=== PATIENT | female | born 1960 | race Caucasian/White ===

== ENCOUNTER 2020-01-21 19:27 | Emergency (ER) | payer MEDICAID ==
[~2020-01-21] VITALS: Ht 149.9 cm; Wt 100.7 kg
[2020-01-21 19:35] VITALS: BP 137/87
[2020-01-21 20:34] LABS: BASOPHILS # (AUTO) 0.07 x10^3/uL (0-0.1); BASOPHILS % (AUTO) 1 % (0-1); EOSINOPHILS # (AUTO) 0.23 x10^3/uL (0-0.4); EOSINOPHILS % (AUTO) 2 % (1-7); LYMPHOCYTES # (AUTO) 3.48 x10^3/uL (1-3.4); LYMPHOCYTES % (AUTO) 32 % (22-44); MD NO; MEAN CORPUSCULAR HGB CONC 32.8 g/dL (32.4-35.8); MEAN PLATELET VOLUME 8.8 fL (7.4-10.4); MONOCYTES # (AUTO) 0.74 x10^3/uL (0.2-0.8); MONOCYTES % (AUTO) 7 % (2-9); NEUTROPHILS # (AUTO) 6.44 x10^3/uL (1.8-6.8); NEUTROPHILS % (AUTO) 59 % (42-75); PLATELET COUNT 325 x10^3/uL (130-400); RED BLOOD COUNT 5.36 x10^6/uL (3.82-5.3); RED CELL DISTRIBUTION WIDTH 13.8 % (9.6-15.2)
[2020-01-21 20:43] LABS: ALBUMIN 3.4 g/dL (3.4-5.0); ANION GAP 5 mmol/L (5-15); CALCIUM 9.4 mg/dL (8.5-10.1); CHLORIDE 101 mmol/L (98-107)
[2020-01-21 20:46] LABS: ALANINE AMINOTRANSFERASE 29 U/L (12-78); ALKALINE PHOSPHATASE 71 U/L (45-117); BILIRUBIN,TOTAL 0.4 mg/dL (0.2-1.0); CREATININE 0.76 mg/dL (0.55-1.02); TOTAL PROTEIN 7.3 g/dL (6.4-8.2)
--- NOTE | 2020-01-21 21:10 | NUR ---
PT RESTING COMFORTABLY IN [facility] WITH VS MONITORS ATTACHED. VSS AT THIS TIME; CHIRAG. PT HAS CALL LIGHT WITHIN REACH AND AWAITING ORDERS AT THIS TIME.
[2020-01-21] MEDS ORDERED: DEXAMETHASONE 4 MG TABLET ONE (21:26)
[2020-01-21] MEDS ORDERED: ALBUTEROL/IPRATROPIUM 2.5MG/0.5MG, 3 ML ONE (21:27)
[2020-01-21] MEDS ORDERED: ALBUTEROL/IPRATROPIUM 2.5MG/0.5MG, 3 ML NPPB ONE (21:30)
[2020-01-21] MEDS ORDERED: DEXAMETHASONE 4 MG TABLET PO ONE (21:30)
--- NOTE | 2020-01-21 21:54 | NUR ---
PT RESTING IN [facility] AT THIS TIME; BREATHING TREATMENT ADMINISTERED AND COMPLETE PER MAR. PT DENIES ANY NEEDS AT THIS TIME AND HAS CALL LIGHT WITHIN REACH.
--- NOTE | 2020-01-21 22:50 | NUR ---
PT D/C WITH D/C SUMMARY AND SCRIPTS. ALL QUESTIONS ANSWERED. PT AMBULATES TO REGISTRATION DESK WITH STEADY GAIT FOR D/C HOME AND DENIES ANY OTHER NEEDS PERTAINING TO THIS VISIT.
== END 2020-01-21 22:52 | disposition home or self-care (01) ==
LOC: ED 21:59
DX: J44.1 Chronic obstructive pulmonary disease with (acute) exacerbation (principal); R06.00 Dyspnea, unspecified; Z20.828 Contact with and (suspected) exposure to other viral communicable diseases; R00.0 Tachycardia, unspecified; F17.210 Nicotine dependence, cigarettes, uncomplicated; I10 Essential (primary) hypertension
CPT/HCPCS: 36415; 71045; 80053; 85025; 87635; 93005; 94640; 99285; 99406

== ENCOUNTER 2020-04-14 13:29 | Emergency (ER) | payer MEDICAID ==
[~2020-04-14] VITALS: Ht 149.9 cm; Wt 102.6 kg
[2020-04-14 13:38] VITALS: BP 153/85
--- NOTE | 2020-04-14 15:49 | NUR ---
XRAYS AND CT COMPLETED WITH DR CABALLERO AT BEDSIDE EXAMINING PT
--- NOTE | 2020-04-14 15:54 | NUR ---
HEAD PAIN BEHIND LEFT EYE, LEFT HIP, BILATERAL KNEE PAIN, NECK PAIN S/P MECHANICAL GLF 3 DAYS AGO.
--- NOTE | 2020-04-14 16:38 | NUR ---
AMBULATED TO BATHROOM ACROSS [place]ART[place]. REMAINS IN [facility].
== END 2020-04-14 17:56 ==
LOC: ED 15:57
DX: S80.02XA Contusion of left knee, initial encounter (principal); S09.90XA Unspecified injury of head, initial encounter; M54.2 Cervicalgia; I10 Essential (primary) hypertension; J44.9 Chronic obstructive pulmonary disease, unspecified; F17.200 Nicotine dependence, unspecified, uncomplicated; W01.0XXA Fall on same level from slipping, tripping and stumbling without subsequent striking against object, initial encounter; Y93.89 Activity, other specified; Y92.009 Unspecified place in unspecified non-institutional (private) residence as the place of occurrence of the external cause; Y99.8 Other external cause status
CPT/HCPCS: 70450; 70486; 72125; 99285

== ENCOUNTER 2020-09-08 19:30 | Emergency (ER) | payer MEDICAID ==
[~2020-09-08] VITALS: Ht 149.9 cm; Wt 102.6 kg
[2020-09-08 20:30] LABS: BASOPHILS % (AUTO) 1 % (0-1); EOSINOPHILS % (AUTO) 2 % (1-7); LYMPHOCYTES % (AUTO) 30 % (22-44); MEAN CORPUSCULAR HEMOGLOBIN 30.6 pg (27.0-34.8); MEAN CORPUSCULAR HGB CONC 34.2 g/dL (32.4-35.8); MEAN PLATELET VOLUME 8.5 fL (7.4-10.4); MONOCYTES % (AUTO) 5 % (2-9); NEUTROPHILS % (AUTO) 62 % (42-75); PLATELET COUNT 308 x10^3/uL (130-400); RED BLOOD COUNT 5.13 x10^6/uL (3.82-5.3); RED CELL DISTRIBUTION WIDTH 13.8 % (9.6-15.2)
[2020-09-08 20:31] LABS: MD NO
[2020-09-08 20:41] LABS: ALBUMIN 3.6 g/dL (3.4-5.0); ANION GAP 6 mmol/L (5-15); CALCIUM 9.6 mg/dL (8.5-10.1); CHLORIDE 101 mmol/L (98-107); CREATININE 0.69 mg/dL (0.55-1.02)
[2020-09-08 20:45] LABS: TROPONIN I < 0.015 ng/mL (0.000-0.045)
[2020-09-08] MEDS ORDERED: POTASSIUM CHLORIDE 20 MEQ TAB.ER.PRT PO ONE (21:30)
[2020-09-08] MEDS ORDERED: ALBUTEROL/IPRATROPIUM 2.5MG/0.5MG, 3 ML NPPB ONE (21:30)
[2020-09-08] MEDS ORDERED: POTASSIUM CHLORIDE 20 MEQ TAB.ER.PRT ONE (21:54)
[2020-09-08] MEDS ORDERED: ALBUTEROL/IPRATROPIUM 2.5MG/0.5MG, 3 ML ONE (21:54)
[2020-09-08 22:00] VITALS: BP 121/55
== END 2020-09-08 22:21 | disposition home or self-care (01) ==
LOC: ED 21:13
DX: M79.662 Pain in left lower leg (principal); R06.00 Dyspnea, unspecified; R06.2 Wheezing; J98.01 Acute bronchospasm; E87.6 Hypokalemia; I10 Essential (primary) hypertension; F17.210 Nicotine dependence, cigarettes, uncomplicated; Z86.718 Personal history of other venous thrombosis and embolism
CPT/HCPCS: 36415; 71045; 80048; 82040; 84484; 85025; 93005; 93971; 94640; 99285; 99406; J7512